=== PATIENT | female | born 1940 | race Caucasian/White ===

== ENCOUNTER 2018-02-12 10:33 | Emergency (ER) | payer MEDICARE ==
[~2018-02-12] VITALS: Ht 157.5 cm; Wt 63.5 kg
[2018-02-12] MEDS ORDERED: FOSAMAX70 MG ORAL (10:40)
[2018-02-12 10:48] VITALS: BP 164/99
[2018-02-12 11:55] VITALS: BP 138/75
--- NOTE | 2018-02-12 11:59 | Emergency Room Report ---
History of Present Illness General Chief Complaint: Nosebleed Source: Patient Present Illness HPI Mrs. Rojas is a healthy 77-year-old female who presents with nosebleed. 6 weeks ago she had several nosebleed. However with nasal sprays saline washes, the nosebleeds that resolved. This morning, she had a severe nosebleed lasting 2 hours. She use saline spray, ice and pressure. Eventually the nose bleeding resolved. She had bleeding prominently from the right nostril. Normally she has nosebleed from the left nostril. Denies pain. Denies lightheadedness. Has had sinus congestion recently. She has used loratadine. Allergies: Coded Allergies: No Known Allergies (Verified Allergy, Unknown, 10/15/09) Patient History Past Medical History: see triage record, old chart reviewed Social History: Reports: smoking Last Menstrual Period: menopause Reviewed Nursing Documentation: PMH: Agreed; PSxH: Agreed Nursing Documentation-PMH Past Medical History: No Stated History Review of Systems Constitutional: Denies: fever ENT: Reports: nose congestion Respiratory: Denies: cough Cardiovascular: Denies: chest pain Gastrointestinal: Denies: abdominal pain Physical Exam Vital Signs Date Time Temp Pulse Resp B/P (MAP) Pulse Ox O2 Delivery O2 Flow Rate FiO2 02/12/18 10:38 98.1 82 18 164/99 95 Room Air Sp02 EP Interpretation: reviewed, normal General Appearance: normal inspection, well appearing, no apparent distress, alert, GCS 15, non-toxic Eyes: bilateral eye normal inspection ENT: hearing grossly normal, normal pharynx, no angioedema, normal voice, other - dried blood at both nostrls, most prominent at left no bleeding Neck: normal inspection, full range of motion Respiratory: normal inspection Neurologic: normal inspection, alert, oriented x3, responsive Psychiatric: normal inspection, judgement/insight normal, memory normal Skin: normal color, warm/dry Medical Decision Making Diagnostic Impression: Primary Impression: Epistaxis ER Course Mrs. Rojas presents with mild nosebleed which has resolved. Instructed to use AFrin and pressure. She will halt use of saline spray for the next week. She understands to return if bleeding does not resolve. Last Vital Signs Date Time Temp Pulse Resp B/P (MAP) Pulse Ox O2 Delivery O2 Flow Rate FiO2 02/12/18 10:48 98.1 18 164/99 95 Room Air 02/12/18 10:38 82 Disposition: HOME, SELF-CARE Condition: Stable Referrals: NON PHYSICIAN (PCP) Patient Instructions: Nosebleed, [id number] Inés Mcclian MD Feb 12, 2018 11:59
== END 2018-02-12 11:55 | disposition home or self-care (01) ==
LOC: EMR 11:35
DX: R04.0 Epistaxis (principal)
CPT/HCPCS: 99282